=== PATIENT | female | born 1955 | race Two or more races ===

== ENCOUNTER 2016-05-27 09:54 | Day surgery (SDC) | payer OTHER ==
[2016-05-27 10:53] VITALS: BP 159/87; PULSE 58; RESP 20; TEMP 98.7; O2SAT 96
[2016-05-27 11:40] VITALS: BP 139/91; PULSE 60; RESP 16; TEMP 98; O2SAT 98
[2016-05-27 11:55] VITALS: BP 158/86; PULSE 59; RESP 16; O2SAT 98
--- NOTE | 2016-05-27 13:29 | RADRPT ---
EXAM DATE/TIME: 05/27/2016 10:54 [place] COMPARISON: No previous studies available for comparison. INDICATIONS : Left neck mass. MEDICAL HISTORY : Patient complains of left neck mass which varies in size over time. SURGICAL HISTORY : NA ENCOUNTER: Initial ACUITY: 1 day PAIN SCORE: 2/10 LOCATION: Left neck. ORGAN: Left neck SPECIMENS: Two core specimen(s) submitted for pathologic evaluation. DEVICE: 18 gauge Tem[place] needle Post procedure scanning reveals no hematoma or other complication. The possibility does exist that the tissue obtained will be non-diagnostic. If the sample is non-lindy gnostic a repeat biopsy or surgical biopsy may need to be performed. TECHNIQUE: 1. Ultrasound guidance for needle aspiration and biopsy. 2. Needle biopsy. The risks, benefits, and alternatives to ultrasound guided needle biopsy were explained to the patien t in detail including the risk of bleeding and infection. Written and verbal informed consent was ob tained. With the patient on the ultrasound table, images were obtained. Overlying skin was prepped and drape d in the usual sterile fashion and Lidocaine was utilized as a local anesthetic. A needle was advanced into the identified target and 15 cc of pus was aspirated. An 18 gauge needle w as placed within the thickened wall and 2 samples were obtained. Samples were sent to pathology for e valuation. Fluid also sent to the laboratory. The patient tolerated the procedure well and left the ultrasound suite in stable condition. CONCLUSION: Uncomplicated ultrasound guided needle biopsy of the thickened wall of complex cystic structure. Appr oximately 15 cc of pus was aspirated as well. Reed Carey MD on May 27, 2016 at 13:25 Board Certified Radiologist. This report was verified electronically.
[2016-05-27] MEDS ORDERED: SODIUM BICARBONATE 8.4% INJ 50 MEQ/50 ML SYR ONE (14:28)
[2016-05-27] MEDS ORDERED: LIDOCAINE HCL 1% PF 30 ML VIAL ONE (14:28)
[2016-09-20] MEDS ORDERED: GEMF600T PO (14:39)
[2016-09-20] MEDS ORDERED: RENACAP2 PO (14:39)
[2016-09-20] MEDS ORDERED: VITA20003 PO (14:39)
[2016-09-20] MEDS ORDERED: FERR200T PO (14:39)
[2016-09-20] MEDS ORDERED: ATEN25TA PO (14:39)
[2016-09-20] MEDS ORDERED: B-1250TA2 PO (14:39)
[2016-09-20] MEDS ORDERED: SODI650T PO (14:39)
[2016-09-20] MEDS ORDERED: GLIP10TA6 PO (14:39)
== END 2016-05-27 12:00 | disposition home or self-care (01) ==
LOC: HRAD 09:54 → HRIP 09:59 → HRAD 12:00
PROVIDERS: ATTEND Otolaryngology Otolaryngology/Facial Plastic Surgery
DX: R22.1 Localized swelling, mass and lump, neck (principal)
CPT/HCPCS: 38505; 76942; 87015; 87070; 87102; 87116; 87205; 87206; 88112; 88305; 88312